=== PATIENT | female | born 1960 | race Caucasian/White ===

== ENCOUNTER → 2017-01-19 | Outpatient (CLI) | payer OTHER ==
[~2017-01-19] MED LIST: NEBI5TAB2 PO
--- NOTE | 2017-01-19 12:07 | DI ---
Indication: ITS.REASON: R22.9 ST LT THIGH MASS PROCEDURE: US EXT.NONVASC LMTD. TISSUE LT: Encounter: Initial Comparison: None Technique: Grayscale and color Doppler sonographic imaging of the left thigh area of palpable concern was performed. Findings: In the area of palpable concern there is a fairly well-circumscribed echogenic lesion measuring 5 x 7 mm in size. Additional 7 x 9 mm similar appearing lesion is also present. No additional mass or fluid collection seen. Impression: Two small lipomas seen in the area of palpable concern. The area of palpable abnormality seems to be larger than would be suggested by these small abnormalities and as such further evaluation with a contrast enhanced MRI may be helpful. .
== END ==
LOC: IMA 11:14
PROVIDERS: ATTEND Family Medicine
DX: D17.24 Benign lipomatous neoplasm of skin and subcutaneous tissue of left leg (principal); R22.42 Localized swelling, mass and lump, left lower limb